=== PATIENT | female | born 1985 | race Caucasian/White ===

== ENCOUNTER 2023-10-17 15:49 | Inpatient (IN) | payer BC ==
[~2023-10-17] VITALS: Ht 154.9 cm; Wt 102.1 kg
[2023-10-17 18:34] VITALS: BP 148/70; PULSE 91; RESP 18; TEMP 98.1; O2SAT 98
[2023-10-17] MEDS: HALOPERIDOL 5 MG TABLET PO PRN (18:36)
[2023-10-17] MEDS: LORazepam 2 MG TABLET PO PRN (18:36)
[2023-10-17 20:15] VITALS: BP 135/79; PULSE 89; RESP 18; TEMP 98.3; O2SAT 97
[2023-10-17 23:01] LABS: GLUCOMETER DEV NAME(LOC) POC.BV; POC SARS-COV2 AG, FIA NEGATIVE (NEGATIVE)
[2023-10-18 08:47] LABS: BASOPHILS % (AUTO) 0.6 % (0.0-2.0); EOSINOPHILS % (AUTO) 1.2 % (1.0-6.0); HEMATOCRIT 41.9 % (36-46); HEMOGLOBIN 14.1 g/dL (12.0-16.0); LYMPHOCYTES # (AUTO) 2.7 K/uL (1.0-4.8); LYMPHOCYTES % (AUTO) 30.2 % (22.0-44.0); MEAN CORPUSCULAR HEMOGLOBIN 29.8 pg (26.0-34.0); MEAN CORPUSCULAR HGB CONC 33.5 G/dL (31.0-37.0); MEAN CORPUSCULAR VOLUME 89 fL (80-100); MONOCYTES # (AUTO) 0.8 K/uL (0.1-1.0); MONOCYTES % (AUTO) 9.3 % (2.0-9.0); NEUTROPHILS # (AUTO) 5.2 K/uL (1.8-7.7); NEUTROPHILS % (AUTO) 58.7 % (40.0-70.0); PLATELET COUNT (AUTO) 344 K/uL (150-450); RED BLOOD CELL COUNT(AUTO) 4.72 MIL/uL (4.00-5.20); RED CELL DISTRIBUTION WIDTH 13.8 % (11.5-14.5); WHITE BLOOD COUNT (AUTO) 8.9 K/uL (4.5-11.0)
[2023-10-18 09:27] LABS: ALANINE AMINOTRANSFERASE 49 U/L (12-78); ALBUMIN 3.5 g/dL (3.4-5.0); ALKALINE PHOSPHATASE 77 U/L (46-116); ANION GAP 4 mmol/L (8-16); ASPARTATE AMINOTRANSFERASE 23 U/L (15-37); BILIRUBIN,TOTAL 0.6 mg/dL (0.1-1.0); CALCIUM, TOTAL 8.9 mg/dL (8.8-10.5); CARBON DIOXIDE 32 mmol/L (22-29); CHLORIDE 103 mmol/L (98-107); CHOL/HDL RATIO 2.5 (3.9-5.7); CHOLESTEROL 143 mg/dL (131-200); CREATININE 0.75 mg/dL (0.60-1.30); FREE T4 (FREE THYROXINE) 1.47 ng/dL (0.76-1.46); GLOMERULAR FILTR. RATE CALC > 60 mL/min (>60); GLUCOSE,RANDOM 93 mg/dL (70-110); HDL CHOLESTEROL 57 mg/dL (40-60); LDL CHOL (CALC.) 66 mg/dL (0-130); POTASSIUM 4.2 mmol/L (3.5-5.1); SODIUM SERUM 139 mmol/L (136-145); T4 (THYROXINE) 10.2 mcg/dL (4.7-13.3); THYROID STIMULATING HORMONE 1.92 uIU/mL (0.36-3.74); TOTAL PROTEIN, SERUM 7.8 g/dL (6.4-8.2); TRIGLYCERIDES 100 mg/dL (15-150); UREA NITROGEN, BLOOD 9 mg/dL (7-18)
[2023-10-18 09:29] VITALS: BP 137/69; PULSE 98; RESP 17; TEMP 98.4; O2SAT 97
[2023-10-18] MEDS: QUEtiapine FUMARATE 200 MG TABLET PO SCH (12:25)
[2023-10-18] MEDS ORDERED: ALBUTEROL SULFATE HFA 90 MCG/PUFF 8 GM INHALER IH PRN (13:15)
[2023-10-18] MEDS ORDERED: PETROLATUM,WHITE 28 GM JELLY TP PRN (13:15)
[2023-10-18] MEDS ORDERED: MAGNESIUM HYDROXIDE SUSPENSION 30 ML UDCUP PO PRN (13:15)
[2023-10-18] MEDS ORDERED: GuaiFENesin/D-METHORPHAN [SUGAR-FREE] 200-20MG/10 ML SYRUP UDCUP PO PRN (13:15)
[2023-10-18] MEDS ORDERED: DOCUSATE SODIUM 100 MG CAPSULE PO PRN (13:15)
[2023-10-18] MEDS ORDERED: CloNIDine HCL 0.1 MG TABLET PO PRN (13:15)
[2023-10-18] MEDS ORDERED: NICOTINE 14 MG/24 HOUR PATCH TD PRN (13:15)
[2023-10-18] MEDS ORDERED: ONDANSETRON HCL 4 MG TABLET PO PRN (13:15)
[2023-10-18] MEDS: LOPERAMIDE HCL 2 MG CAPSULE PO PRN (19:06)
[2023-10-18 21:29] VITALS: BP 149/107; PULSE 92; RESP 18; TEMP 96.4; O2SAT 99
[2023-10-18] MEDS: ZOLPIDEM TARTRATE 10 MG TABLET PO PRN (22:42)
[2023-10-19 01:45] VITALS: BP 128/89; PULSE 96; RESP 18; O2SAT 98
[2023-10-19 09:00] LABS: HEMOGLOBIN A1C 5.4 % (3.8-5.6)
[2023-10-19 09:09] LABS: APPEARANCE,URINE HAZY (CLEAR); BILIRUBIN,URINE NEGATIVE (NEGATIVE); COLOR,URINE YELLOW (YELLOW); GLUCOSE, URINE (UA) NEGATIVE (NEGATIVE); KETONES,URINE NEGATIVE (NEGATIVE); LEUKOCYTE ESTERASE ,URINE LARGE (NEGATIVE); NITRATE,URINE NEGATIVE (NEGATIVE); OCCULT BLOOD,URINE NEGATIVE (NEGATIVE); PH,URINE 5.5 (5.0-8.0); PH,URINE DRUG SCREEN 5.5 (5.0-8.0); PROTEIN,URINE NEGATIVE (NEGATIVE); SPECIFIC GRAVITIY, URINE 1.018 (1.003-1.030); UROBILINOGEN,URINE <=1.0 mg/dL (<=1.0)
[2023-10-19 09:11] LABS: ALCOHOL, URINE DRUG SCREEN NEGATIVE (NEGATIVE); AMPHET/METH SCREEN,URINE NEGATIVE (NEGATIVE); BARBITURATE SCREEN, URINE NEGATIVE (NEGATIVE); BENZODIAZEPINES SCREEN,URINE NEGATIVE (NEGATIVE); CANNABINOID SCREEN,URINE NEGATIVE (NEGATIVE); COCAINE SCREEN,URINE NEGATIVE (NEGATIVE); METHADONE SCREEN, URINE NEGATIVE (NEGATIVE); OPIATE SCREEN,URINE NEGATIVE (NEGATIVE); PHENCYCLIDINE SCREEN,URINE NEGATIVE (NEGATIVE)
[2023-10-19 09:16] LABS: CHOL/HDL RATIO 2.4 (3.9-5.7); THYROID STIMULATING HORMONE 1.37 uIU/mL (0.36-3.74)
[2023-10-19 09:38] VITALS: BP 105/56; PULSE 82; RESP 20; TEMP 96.8; O2SAT 96
[2023-10-19 10:45] LABS: BACTERIA,URINE Few /HPF (None Seen); CALCIUM OXALATE CRYSTALS,UR Moderate /LPF (None Seen); RBC,URINE None Seen /HPF (0-2); SQUAMOUS EPITHELIAL CELL,UR Few /LPF (None Seen)
[2023-10-19 20:53] VITALS: BP 120/70; PULSE 90; RESP 18; TEMP 97.4; O2SAT 98
[2023-10-20 10:11] VITALS: BP 127/84; PULSE 100; RESP 18; TEMP 97.7; O2SAT 99
[2023-10-20] MEDS: MAG HYDROX/ALUMINUM HYD/SIMETH ES 30 ML SUSPENSION UDCUP PO PRN (10:31)
[2023-10-20 21:15] VITALS: BP 124/72; PULSE 116; RESP 18; TEMP 97.3; O2SAT 99
[2023-10-20] MEDS: ACETAMINOPHEN 325 MG TABLET PO PRN (21:20)
[2023-10-21 08:58] VITALS: BP 122/86; PULSE 100; RESP 18; TEMP 97.5; O2SAT 97
[2023-10-21 09:11] VITALS: RESP 18; O2SAT 97
[2023-10-21 10:11] VITALS: RESP 18; O2SAT 97
[2023-10-21 20:15] VITALS: BP 124/62; PULSE 95; RESP 18; TEMP 97.3; O2SAT 95
[2023-10-21] MEDS: IBUPROFEN 400 MG TABLET PO PRN (20:49)
[2023-10-22 08:44] VITALS: BP 137/76; PULSE 63; RESP 18; TEMP 97.7; O2SAT 97
[2023-10-22 11:06] VITALS: BP 127/72; PULSE 88; RESP 18; TEMP 97.8; O2SAT 98
[2023-10-22 12:06] VITALS: RESP 16; O2SAT 97
[2023-10-22 20:00] VITALS: BP 154/80; PULSE 90; RESP 16; TEMP 97.4; O2SAT 100
[2023-10-22] MEDS ORDERED: PEG 400/HYPROMELLOSE/GLYCERIN 15 ML OPHTHALMIC SOLUTION OU PRN (20:15)
[2023-10-23 08:18] VITALS: BP 134/83; PULSE 92; RESP 18; TEMP 97.5; O2SAT 98
[2023-10-23] MEDS: CEPHALEXIN MONOHYDRATE 500 MG CAPSULE PO SCH (09:38)
[2023-10-23] MEDS ORDERED: CEPH-558 PO (11:21)
[2023-10-23] MEDS ORDERED: QUET200T30 PO (11:28)
== END 2023-10-23 16:00 | disposition home or self-care (01) | DRG 885 ==
LOC: B2S 16:22
PROVIDERS: ADMIT Psychiatry & Neurology Psychiatry; ATTEND Psychiatry & Neurology Psychiatry
PROC: GZHZZZZ Group Psychotherapy (ICD-10-PCS; principal; 2023-10-18)
PROC: GZ51ZZZ Individual Psychotherapy, Behavioral (ICD-10-PCS; 2023-10-18)
DX: F31.2 Bipolar disorder, current episode manic severe with psychotic features (principal); N39.0 Urinary tract infection, site not specified; Z20.822 Contact with and (suspected) exposure to COVID-19; F10.10 Alcohol abuse, uncomplicated; G47.00 Insomnia, unspecified; Z79.899 Other long term (current) drug therapy; Z81.8 Family history of other mental and behavioral disorders
CPT/HCPCS: 80053; 80061; 80307; 81001; 83036; 84436; 84439; 84443; 85025; 86592